=== PATIENT | female | born 1960 | race Caucasian/White ===

== ENCOUNTER 2017-04-29 12:27 | Emergency (ER) | payer OTHER ==
[2017-04-29 13:05] VITALS: BP 102/62; PULSE 70; TEMP 97.7; BMI 28.9
--- NOTE | 2017-04-29 14:00 | PDOC ---
History of Present Illness - General Chief Complaint: Injury Stated Complaint: FALL Time Seen by Provider: 04/29/17 13:48 History Source: Patient Exam Limitations: No Limitations - History of Present Illness Initial Comments: CHIEF COMPLAINT: 56 y/o afebrile female with PMH IDDM, HTN, HLD c/o right shoulder, elbow and rib pain s/p slip and fall today. HISTORY OF PRESENT ILLNESS: The patient states she slipped on ice today and fell down onto her right side, immediately feeling pain in her right shoulder and elbow. She is also c/o right sided rib pain. She denies head trauma, LOC, neck pain, changes in vision/hearing, dizziness, n/v/d, CP, SOB, abd pain. Vital signs on arrival are within normal limits. REVIEW OF SYSTEMS: GENERAL/CONSTITUTIONAL: No fever/chills. No weakness. No weight change. HEAD, EYES, EARS, NOSE AND THROAT: No change in vision. No ear pain or discharge. No sore throat. CARDIOVASCULAR: +right sided rib pain. No chest pain or shortness of breath. RESPIRATORY: No cough, wheezing, or hemoptysis. MUSCULOSKELETAL: +right shoulder and elbow pain. No neck or back pain. NEUROLOGIC: No headache, vertigo, loss of consciousness, or loss of sensation. PHYSICAL EXAM: GENERAL: The patient is awake, alert, and fully oriented, in no acute distress. She is ambulatory, holding her right arm against her body. HEAD: Normal with no signs of trauma. No hematomas. ENT: Pupils equal, round and reactive to light, extraocular movements intact, sclera anicteric, conjunctiva clear. LUNGS: Clear to auscultation bilaterally. Normal excursion. No respiratory distress or use of accessory muscles. CHEST WALL: Pain with palpation of right ribs between mid-axillary and mid- clavicular line at level of T4-T6 without step offs or crepitus. No flail chest. EXTREMITIES: Pain with palpation of right AC joint and right elbow joint. FLexion of right elbow only 30 degrees. Patient cannot abduct her left arm at all. NEUROLOGICAL: Normal speech, normal gait. CN II-XII grossly intact. SKIN: Warm, dry, normal turgor, no rashes or lesions noted. Past History - Past Medical History Allergies/Adverse Reactions: Allergies Allergy/AdvReac Type Severity Reaction Status Date / Time Penicillins Allergy Verified 04/29/17 12:34 Home Medications: Ambulatory Orders Diphenhydramine HCl [Benadryl Capsule -] 25 mg PO PRN 08/07/13 Ramipril 5 mg PO DAILY 08/07/13 Simvastatin [Zocor -] 20 mg PO DAILY 08/07/13 Aspirin [Aspir 81] 81 mg PO DAILY 07/21/15 Insulin Aspart [Novolog Flexpen] 5 unit SQ BIDAC 08/02/15 Insulin Glargine,Hum.rec.anlog [Lantus Solostar PEN -] 10 unit SQ DAILY Pregabalin [Lyrica -] 300 mg PO DAILY 08/02/15 Sitagliptin Phosphate [Januvia] 100 mg PO DAILY 08/02/15 Valacyclovir HCl [Valtrex -] 500 mg PO DAILY 08/02/15 Oxycodone HCl/Acetaminophen [Percocet 5-325 mg Tablet] 1 tab PO Q6H #12 tab MDD 6 04/29/17 Anemia: Yes (IRON DEFICIENCY) Asthma: Yes Cancer: (skin) Cardiac Disorders: Yes (heart murmur) COPD: No Diabetes: Yes (IDDM) GI Disorders: Yes (Celiac) HTN: Yes Hypercholesterolemia: Yes - Surgical History Abdominal Surgery: No Appendectomy: No Cardiac Surgery: No Cholecystectomy: No Lung Surgery: No Neurologic Surgery: No Orthopedic Surgery: Yes (left ankle fracture,left arm fracture) - Immunization History Td Vaccination: Yes TDAP Vaccination: Yes Immunization Up to Date: Yes - Suicide/Smoking/Psychosocial Hx Smoking Status: Yes Smoking History: Never smoked Have you smoked in the past 12 months: Yes Number of Cigarettes Smoked Daily: 10 Information on smoking cessation initiated: No 'Breaking Loose' booklet given: 05/27/14 Hx Alcohol Use: No Drug/Substance Use Hx: No Substance Use Type: None Hx Substance Use Treatment: Yes *Physical Exam - Vital Signs Last Vital Signs Temp Pulse Resp BP Pulse Ox 97.7 F 70 18 102/62 96 04/29/17 12:27 04/29/17 12:27 04/29/17 12:27 04/29/17 12:27 04/29/17 12:27 Medical Decision Making - Medical Decision Making A/P: 56 y/o female with slip and fall today, injuring her right shoulder, elbow and ribs. Plan is as follows: 1. PO percocet 2. Xray ribs 3. Xray right shoulder 4. Xray right elbow Xray right ribs IMPRESSION: Multiple right rib fractures. (5th, 6th and 8th) xray right shoulder IMPRESSION: Comminuted fracture of the humeral head. xray right elbow IMPRESSION: No clavicular fracture. No evidence of elbow fracture or dislocation. Placed a call to ortho for consult Spoke with NAOMI Castro. He looked at xrays. Suggests sling for humeral head fracture and f/u in office. Spoke with Dr. Lester in the main ER and he suggests having patient attempt incentive spirometry - if she can't tolerate she would need admission for 3 rib fractures. The patient was able to tolerate incentive spirometry very well without any obvious signs of pain. Patient was given the incentive spirometer to take home wtih her and instructed to use every 15 minutes to prevent pneumonia. Will discharge to home with rx for percocet. Pt's arm is in a sling. Instructed her to f/u with Dr. Leiva's office tomorrow to schedule follow up appointment for or friday. instructed her to return to the ER immediately with any worsening or concerning symptoms. The patient verbalizes understanding of all instructions, has no further questions and is awaiting discharge. *DC/Admit/Observation/Transfer Diagnosis at time of Disposition: Fall Qualifiers: Encounter type: initial encounter Qualified Code(s): W19.XXXA - Unspecified fall, initial encounter Humeral head fracture Qualifiers: Encounter type: initial encounter Fracture type: closed Laterality: right Qualified Code(s): S42.291A - Other displaced fracture of upper end of right humerus, initial encounter for closed fracture Ribs, multiple fractures Qualifiers: Encounter type: initial encounter Fracture type: closed Laterality: right Qualified Code(s): S22.41XA - Multiple fractures of ribs, right side, initial encounter for closed fracture - Discharge Dispostion Condition at time of disposition: Stable - Referrals Referrals: Carlos Lebron MD [Primary Care Provider] - Delta Leiva MD [Staff Physician] - (call tomorrow to schedule appointment for or Friday) - Patient Instructions Printed Discharge Instructions: DI for Shoulder Fracture, DI for Rib Fracture, How To Perform RICE (Rest, Ice, Compress, Elevate), How to Use a Sling Additional Instructions: Discharge Instructions: -KEep your arm in a sling at all times -Use KELL bandage around chest to help with pain of broken ribs -Follow RICE instructions -A prescription for percocet has been sent to your pharmacy; please take as prescribed for pain -Call Dr. Leiva tomorrow and schedule a follow up appointment for or Friday -Use the incentive spirometer every 15 minutes to prevent pneumonia -Return to the ER immediately with any worsening or concerning symptoms - Post Discharge Activity
== END 2017-04-29 17:04 | disposition home or self-care (01) ==
LOC: JERFT 12:27
DX: S42.291A Other displaced fracture of upper end of right humerus, initial encounter for closed fracture (principal); S22.41XA Multiple fractures of ribs, right side, initial encounter for closed fracture; W00.0XXA Fall on same level due to ice and snow, initial encounter; Y93.89 Activity, other specified; Y92.89 Other specified places as the place of occurrence of the external cause; Y99.8 Other external cause status; I10 Essential (primary) hypertension; E78.00 Pure hypercholesterolemia, unspecified; E11.9 Type 2 diabetes mellitus without complications; Z79.4 Long term (current) use of insulin
CPT/HCPCS: 71101-TC-RT; 73000-TC-RT; 73030-TC-RT; 73070-TC-RT; 73110-TC-RT; 73130-TC-RT; 99281-25

== ENCOUNTER 2021-04-06 16:24 | Emergency (ER) | payer OTHER ==
[2021-04-06 16:34] VITALS: BP 134/79; PULSE 89; TEMP 97.8; BMI 26.8
[2021-04-06] MEDS ORDERED: LACTATED RINGERS SOLUTION 1000 ML INFUS.BAG IV ONE (17:00)
[2021-04-06 18:12] LABS: INR 0.87 (0.83-1.09); PROTHROMBIN TIME (PATIENT) 10.2 SEC (9.7-13.0)
[2021-04-06 18:14] LABS: EOS % 2.7 % (0-4.5); HEMOGLOBIN 14.1 GM/dL (10.7-15.3); LYMPH % 24.9 % (8-40); MCH 32.2 pg (25.7-33.7); MCHC 33.5 g/dl (32.0-36.0); MEAN CELL VOLUME 96.2 fl (80-96); MEAN PLT VOLUME 8.7 fl (7.5-11.1); MONO % 7.9 % (3.8-10.2); NEUT % 63.5 % (42.8-82.8); PLATELET COUNT 224 10^3/uL (134-434); RBC 4.36 M/mm3 (3.60-5.2); RDW 13.6 % (11.6-15.6); WHITE BLOOD COUNT 5.4 K/mm3 (4.0-10.0)
[2021-04-06 18:15] LABS: ACTIVATED PTT 25.8 SECONDS (25.2-36.5)
[2021-04-06 18:18] LABS: CHLORIDE 108 mmol/L (98-107); SODIUM 139 mmol/L (136-145)
[2021-04-06 18:20] LABS: CALCIUM 8.6 mg/dL (8.5-10.1)
[2021-04-06 18:21] LABS: ALBUMIN 3.6 g/dl (3.4-5.0); ANION GAP 7 MMOL/L (8-16); CO2 24 mmol/L (21-32); GLUCOSE,RANDOM 182 mg/dL (74-106)
[2021-04-06 18:24] LABS: CREATININE 0.7 mg/dL (0.55-1.3); SGOT/AST 63 U/L (15-37); SGPT/ALT 50 U/L (13-61)
[2021-04-06 18:26] LABS: BILIRUBIN,TOTAL 0.7 mg/dL (0.2-1); TOT PROT 7.4 g/dl (6.4-8.2)
[2021-04-06 18:27] LABS: ALK PHOS 88 U/L (45-117)
[2021-04-06] MEDS ORDERED: DIPHTH,PERTUSS(ACELL),TET 0.5 ML DISP.SYRIN IM ONE ×2 (18:42→19:06)
[2021-04-06] MEDS ORDERED: DIPHTH,PERTUSS(ACELL),TET PED 0.5 ML VIAL IM ONE (19:10)
== END 2021-04-06 23:12 | disposition home or self-care (01) ==
LOC: JER 16:24
PROC: 3E0234Z Introduction of Serum, Toxoid and Vaccine into Muscle, Percutaneous Approach (ICD-10-PCS; principal; 2021-04-06)
DX: S09.90XA Unspecified injury of head, initial encounter (principal); F10.929 Alcohol use, unspecified with intoxication, unspecified; W01.0XXA Fall on same level from slipping, tripping and stumbling without subsequent striking against object, initial encounter
CPT/HCPCS: 36415; 70450-TC; 71046-TC-FY; 72125-TC; 80053; 80307; 82550; 82553; 82962; 84484; 85025; 85610; 85730; 86850; 86900; 86901; 90471; 90715; 93005; 93010; 99285-25

== ENCOUNTER 2021-06-20 09:32 | Inpatient (IN) | payer OTHER ==
[2021-06-20 10:12] VITALS: BMI 25.7
[2021-06-20] MEDS ORDERED: BISMUTH SUBSALICYLATE 524 MG/30 ML PO PRN (10:46)
[2021-06-20] MEDS ORDERED: MAG HYDROX/AL HYDROX/SIMETH 30 ML UNIT-DOSE CUP PO PRN (10:46)
[2021-06-20] MEDS ORDERED: MAGNESIUM HYDROX 2400MG/30ML ORAL SUSPENSION 30 ML CUP PO PRN (10:46)
[2021-06-20] MEDS ORDERED: chlordiazePOXIDE HCL 25 MG CAPSULE PO PRN (10:46)
[2021-06-20] MEDS ORDERED: IBUPROFEN 400 MG TABLET (FP) PO PRN (10:46)
[2021-06-20] MEDS ORDERED: MENTHOL/PHENOL 1 EACH UD MM PRN (10:46)
[2021-06-20] MEDS ORDERED: LOPERAMIDE HCL 2 MG CAPSULE PO PRN (10:46)
[2021-06-20] MEDS ORDERED: MAGNESIUM CITRATE 300 ML BOTTLE PO PRN (10:46)
[2021-06-20] MEDS ORDERED: NICOTINE 10 MG CARTRIDGE (INHALER) IH PRN (10:46)
[2021-06-20] MEDS ORDERED: ONDANSETRON *ODT* 4 MG TABLET SL PRN (10:46)
[2021-06-20] MEDS ORDERED: ACETAMINOPHEN 325 MG TABLET (FP) PO PRN ×2 (10:46)
[2021-06-20] MEDS ORDERED: METHOCARBAMOL 500 MG TABLET PO PRN (10:46)
[2021-06-20] MEDS: hydrOXYzine PAMOATE 25 MG CAPSULE (FP) PO SCH ×3 (13:31→22:30)
[2021-06-20 16:19] LABS: ALBUMIN 3.9 g/dl (3.4-5.0); BLOOD UREA NITROGEN 9.3 mg/dL (7-18); CALCIUM 9.3 mg/dL (8.5-10.1)
[2021-06-20 16:23] LABS: CREATININE 0.8 mg/dL (0.55-1.3)
[2021-06-20 16:24] LABS: BILIRUBIN,TOTAL 0.5 mg/dL (0.2-1); TOT PROT 7.1 g/dl (6.4-8.2)
[2021-06-20 16:25] LABS: HEMATOCRIT 39.2 % (32.4-45.2); HEMOGLOBIN 13.3 GM/dL (10.7-15.3); MCH 32.8 pg (25.7-33.7); MEAN CELL VOLUME 96.7 fl (80-96); PLATELET COUNT 240 10^3/uL (134-434); RBC 4.06 M/mm3 (3.60-5.2); RDW 13.4 % (11.6-15.6); WHITE BLOOD COUNT 4.2 K/mm3 (4.0-10.0)
[2021-06-20] MEDS ORDERED: ALBUTEROL SO4 HFA INHALER IH PRN (17:34)
[2021-06-20] MEDS: chlordiazePOXIDE HCL 25 MG CAPSULE PO SCH ×2 (17:52→22:30)
[2021-06-20] MEDS: INSULIN SLIDING SCALE (NOVOLOG) 1 VIAL SQ SCH (22:29)
[2021-06-20] MEDS: MELATONIN 5 MG TABLETS PO SCH (22:30)
[2021-06-20] MEDS: THIAMINE HCL 100 MG TABLET (FP) PO SCH (22:30)
[2021-06-20] MEDS: RAMIPRIL 5 MG CAPSULE PO SCH (23:05)
[2021-06-20] MEDS: BUDESONIDE/FORMETEROL FUMARATE 160/4.5 mcg INHALER IH SCH (23:05)
[2021-06-21] MEDS: hydrOXYzine PAMOATE 25 MG CAPSULE (FP) PO SCH ×5 (06:52→22:48)
[2021-06-21] MEDS: chlordiazePOXIDE HCL 25 MG CAPSULE PO SCH ×4 (06:52→22:47)
[2021-06-21] MEDS: INSULIN SLIDING SCALE (NOVOLOG) 1 VIAL SQ SCH ×4 (06:56→22:49)
[2021-06-21] MEDS ORDERED: PATIENT'S OWN MEDICATION (NON-FORMULARY) (Bupropion Hcl [Bupropion Hcl Sr] 150 MG Tab.Sr.1 PO SCH (10:00)
[2021-06-21] MEDS: LORATADINE 10 MG TABLET PO SCH (10:34)
[2021-06-21] MEDS: MONTELUKAST NA 10 MG TABLET PO SCH (10:34)
[2021-06-21] MEDS: PREGABALIN 100 MG PO SCH (10:35)
[2021-06-21] MEDS: ASPIRIN COATED 81 MG TABLET.EC PO SCH (10:35)
[2021-06-21] MEDS: INSULIN (LEVEMIR) 100 UNITS/ML UNITS SQ SCH ×2 (10:43→22:48)
[2021-06-21] MEDS: BUDESONIDE/FORMETEROL FUMARATE 160/4.5 mcg INHALER IH SCH ×2 (10:43→23:34)
[2021-06-21] MEDS ORDERED: COLLOIDAL OATMEAL 1 BAR EACH TP PRN (11:25)
[2021-06-21] MEDS: PRENATAL VITAMINS W/ FOLIC ACID TABLET (FP) PO SCH (13:51)
[2021-06-21] MEDS: MELATONIN 5 MG TABLETS PO SCH (22:47)
[2021-06-21] MEDS: THIAMINE HCL 100 MG TABLET (FP) PO SCH (22:48)
[2021-06-21] MEDS: RAMIPRIL 5 MG CAPSULE PO SCH (22:48)
[2021-06-22] MEDS: chlordiazePOXIDE HCL 25 MG CAPSULE PO SCH ×4 (06:33→22:17)
[2021-06-22] MEDS: hydrOXYzine PAMOATE 25 MG CAPSULE (FP) PO SCH ×5 (06:33→21:35)
[2021-06-22] MEDS: INSULIN SLIDING SCALE (NOVOLOG) 1 VIAL SQ SCH ×4 (06:36→21:39)
[2021-06-22] MEDS: LORATADINE 10 MG TABLET PO SCH (10:15)
[2021-06-22] MEDS: MONTELUKAST NA 10 MG TABLET PO SCH (10:15)
[2021-06-22] MEDS: ASPIRIN COATED 81 MG TABLET.EC PO SCH (10:15)
[2021-06-22] MEDS: PREGABALIN 100 MG PO SCH (10:15)
[2021-06-22] MEDS: PRENATAL VITAMINS W/ FOLIC ACID TABLET (FP) PO SCH (10:16)
[2021-06-22] MEDS: INSULIN (LEVEMIR) 100 UNITS/ML UNITS SQ SCH ×2 (10:18→21:40)
[2021-06-22] MEDS: BUDESONIDE/FORMETEROL FUMARATE 160/4.5 mcg INHALER IH SCH ×2 (10:37→21:43)
[2021-06-22 13:07] LABS: SARS-CoV-2 NAA Not Detected (Not Detected)
[2021-06-22] MEDS: RAMIPRIL 5 MG CAPSULE PO SCH (21:35)
[2021-06-22] MEDS: THIAMINE HCL 100 MG TABLET (FP) PO SCH (21:35)
[2021-06-22] MEDS: MELATONIN 5 MG TABLETS PO SCH (21:43)
[2021-06-23] MEDS ORDERED: chlordiazePOXIDE HCL 10 MG CAPSULE PO PRN
[2021-06-23] MEDS: hydrOXYzine PAMOATE 25 MG CAPSULE (FP) PO SCH ×2 (06:52→10:30)
[2021-06-23] MEDS: chlordiazePOXIDE HCL 10 MG CAPSULE PO SCH ×2 (06:52→10:29)
[2021-06-23] MEDS: INSULIN SLIDING SCALE (NOVOLOG) 1 VIAL SQ SCH ×2 (06:55→11:28)
[2021-06-23 09:02] VITALS: BP 151/83; PULSE 96; TEMP 97.5
[2021-06-23] MEDS: PRENATAL VITAMINS W/ FOLIC ACID TABLET (FP) PO SCH (10:26)
[2021-06-23] MEDS: PREGABALIN 100 MG PO SCH (10:27)
[2021-06-23] MEDS: LORATADINE 10 MG TABLET PO SCH (10:27)
[2021-06-23] MEDS: ASPIRIN COATED 81 MG TABLET.EC PO SCH (10:28)
[2021-06-23] MEDS: MONTELUKAST NA 10 MG TABLET PO SCH (11:00)
[2021-06-23] MEDS: INSULIN (LEVEMIR) 100 UNITS/ML UNITS SQ SCH (11:00)
[2021-06-23] MEDS: BUDESONIDE/FORMETEROL FUMARATE 160/4.5 mcg INHALER IH SCH (11:30)
[2021-06-24] MEDS ORDERED: chlordiazePOXIDE HCL 10 MG CAPSULE PO SCH (05:00)
[2021-06-25] MEDS ORDERED: chlordiazePOXIDE HCL 10 MG CAPSULE PO ONE (05:00)
== END 2021-06-23 11:39 | disposition home or self-care (01) | DRG 897 ==
LOC: YASAS 09:32 → Y3N 12:07
PROVIDERS: ADMIT Allergy & Immunology; ATTEND Allergy & Immunology
PROC: HZ2ZZZZ Detoxification Services for Substance Abuse Treatment (ICD-10-PCS; principal; 2021-06-20)
DX: F10.230 Alcohol dependence with withdrawal, uncomplicated (principal); F17.210 Nicotine dependence, cigarettes, uncomplicated; F41.9 Anxiety disorder, unspecified; G47.00 Insomnia, unspecified; I10 Essential (primary) hypertension; J44.9 Chronic obstructive pulmonary disease, unspecified; E11.9 Type 2 diabetes mellitus without complications; Z79.4 Long term (current) use of insulin; Z88.0 Allergy status to penicillin
CPT/HCPCS: 36415; 80053; 82962; 85027; 86593; 86780; 87086; 93005; 93010; C9803; U0003; U0005

== ENCOUNTER 2022-02-25 22:22 | Emergency (ER) | payer OTHER ==
[2022-02-25 22:47] VITALS: BP 144/81; PULSE 73; RESP 22; TEMP 98.2; BMI 24.9
[2022-02-25 23:37] LABS: BASO % 1.1 % (0-2.0); EOS % 1.2 % (0-4.5); HEMATOCRIT 39.6 % (32.4-45.2); HEMOGLOBIN 13.2 GM/dL (10.7-15.3); LYMPH % 16.4 % (8-40); MCH 31.7 pg (25.7-33.7); MCHC 33.5 g/dl (32.0-36.0); MEAN CELL VOLUME 94.6 fl (80-96); MEAN PLT VOLUME 7.7 fl (7.5-11.1); MONO % 5.4 % (3.8-10.2); NEUT % 75.9 % (42.8-82.8); PLATELET COUNT 224 10^3/uL (134-434); RBC 4.18 M/mm3 (3.60-5.2); RDW 12.7 % (11.6-15.6); WHITE BLOOD COUNT 3.9 K/mm3 (4.0-10.0)
[2022-02-25 23:45] LABS: CALCIUM 8.1 mg/dL (8.5-10.1)
[2022-02-25 23:46] LABS: ALBUMIN 3.5 g/dl (3.4-5.0); BLOOD UREA NITROGEN 9.4 mg/dL (7-18)
[2022-02-25 23:49] LABS: CREATININE 0.7 mg/dL (0.55-1.3)
[2022-02-25 23:50] LABS: TOT PROT 6.5 g/dl (6.4-8.2)
[2022-02-25 23:51] LABS: BILIRUBIN,TOTAL 0.3 mg/dL (0.2-1)
== END 2022-02-26 00:27 | disposition home or self-care (01) ==
LOC: JER 22:22
DX: E16.2 Hypoglycemia, unspecified (principal); F10.129 Alcohol abuse with intoxication, unspecified
CPT/HCPCS: 36415; 80053; 80307; 82962; 85025; 99283-25

== ENCOUNTER 2022-11-16 14:10 | Emergency (ER) | payer OTHER ==
[2022-11-16 14:30] VITALS: BP 139/111; PULSE 78; RESP 18; TEMP 98.4; BMI 24.5
[2022-11-16 14:55] LABS: BASO % 1.2 % (0-2.0); EOS % 1.4 % (0-4.5); HEMATOCRIT 43.9 % (32.4-45.2); HEMOGLOBIN 14.7 GM/dL (10.7-15.3); LYMPH % 14.2 % (8-40); MCH 30.6 pg (25.7-33.7); MCHC 33.5 g/dl (32.0-36.0); MEAN CELL VOLUME 91.2 fl (80-96); MEAN PLT VOLUME 8.5 fl (7.5-11.1); MONO % 6.2 % (3.8-10.2); PLATELET COUNT 220 10^3/uL (134-434); RBC 4.81 M/mm3 (3.60-5.2); RDW 13.8 % (11.6-15.6); WHITE BLOOD COUNT 4.5 K/mm3 (4.0-10.0)
[2022-11-16 15:31] LABS: VENOUS BASE EXCESS -0.6 mmol/L (-2-2); VENOUS O2 SATURATION 25.9 % (70-80); VENOUS PCO2 55.9 mmHg (38-52); VENOUS PH 7.3 (7.310-7.410)
[2022-11-16 15:31] LABS: POTASSIUM 3.9 mmol/L (3.5-5.1)
[2022-11-16 15:35] LABS: ALBUMIN 3.7 g/dl (3.4-5.0); BLOOD UREA NITROGEN 9.3 mg/dL (7-18); CALCIUM 9.1 mg/dL (8.5-10.1)
[2022-11-16 15:39] LABS: CREATININE 0.9 mg/dL (0.55-1.3)
[2022-11-16 15:40] LABS: BILIRUBIN,TOTAL 0.5 mg/dL (0.2-1); TOT PROT 6.4 g/dl (6.4-8.2)
[2022-11-16 16:06] LABS: PH,URINE 6.5 (5.0-8.0); URINE APPEARANCE CLEAR; URINE BILIRUBIN NEGATIVE (NEGATIVE); URINE COLOR YELLOW; URINE GLUCOSE (UA) 3+ (NEGATIVE); URINE KETONE NEGATIVE (NEGATIVE); URINE LEUK ESTERASE NEGATIVE (NEGATIVE); URINE NITRITE NEGATIVE (NEGATIVE); URINE PROTEIN NEGATIVE (NEGATIVE); URINE UROBILINOGEN 0.2 mg/dL (0.2-1.0)
== END 2022-11-16 16:16 | disposition left against medical advice (07) ==
LOC: JER 14:10
DX: E11.649 Type 2 diabetes mellitus with hypoglycemia without coma (principal); R39.89 Other symptoms and signs involving the genitourinary system; R42 Dizziness and giddiness; R53.1 Weakness; R53.83 Other fatigue
CPT/HCPCS: 36415; 80053; 81003; 82010; 82803; 82962; 85025; 87086; 93005; 93010; 99284-25